=== PATIENT | female | born 1965 | race Caucasian/White ===

== ENCOUNTER 2024-05-01 09:29 | Emergency (ER) | payer OTHER ==
--- NOTE | 2024-05-01 09:44 | ERPHSYRPT ---
- History of Present Illness Time Seen by Provider: 05/01/24 09:38 Source: patient Exam Limitations: no limitations Physician History: Pt accidentally took 60 units of humalog insulin but normal dose is 20 and noted glucose decreasing on her monitor to 120 which is generally lower than it usually gets in normal routine and called and was advised to come in. THis was as about 8 am and the hotline told her the peak should be at around 2 hours in and she is about there now. She has no symptoms at this time. She took some orange soda and it has begun to rise to upper 130s now. No heart problems. Discussed with pt and available family risks and benefits of testing/Tx and she wishes to be observed an hour or two and eat in ER and agrees that since she had no illness or symptoms preceding to avoid additional testing at this time and that is very reasonable given Hx and lack of other findings. Normal mental status and exam at this time. normal gait and coordination. Fundi benign. Chest clear Ht reg without M. Abd soft nontender without mass or peritoneal signs. No SI/HI or mental health symptoms. Timing/Duration: today Severity: mild Modifying Factors: Improves With: nothing Associated Symptoms: denies symptoms, No nausea, No vomiting, No abdominal pain, No shortness of breath, No cough, No chest pain, No fever, No headaches, No loss of appetite, No malaise, No syncope, No seizure, No weakness Allergies/Adverse Reactions: No Known Drug Allergies Allergy (Unverified 05/01/24 09:47) Home Medications: Insulin Glargine,Hum.rec.anlog [Lantus] 60 unit SQ DAILY 05/01/24 [History] Insulin Lispro [Humalog Kwikpen U-100] 12 unit SQ TIDWM 05/01/24 [History] Lisinopril 10 mg [Zestril 10 MG] 10 mg PO DAILY 05/01/24 [History] - Review of Systems Constitutional: No Fever, No Chills Eyes: No Symptoms Ears, Nose, & Throat: No Symptoms Respiratory: No Cough, No Dyspnea Cardiac: No Chest Pain, No Edema, No Syncope Abdominal/Gastrointestinal: No Abdominal Pain, No Nausea, No Vomiting, No Diarrhea Genitourinary Symptoms: No Dysuria Musculoskeletal: No Back Pain, No Neck Pain Skin: No Rash Neurological: No Dizziness, No Focal Weakness, No Gait Changes, No Headache, No Sensory Changes Psychological: No Symptoms, No Suicidal Ideations, No Homicidal Ideations, No Hallucinations Endocrine: No Symptoms Hematologic/Lymphatic: No Symptoms Immunological/Allergic: No Symptoms All Other Systems: Reviewed and Negative - Past Medical History Pertinent Past Medical History: Yes Cardiac History: Hypertension Endocrine Medical History: Diabetes Type II - Nursing Vital Signs Nursing Vital Signs: Initial Vital Signs Temperature 97.0 F 05/01/24 09:33 Pulse Rate 97 H 05/01/24 09:33 Respiratory Rate 18 05/01/24 09:33 Blood Pressure 168/82 05/01/24 09:33 O2 Sat by Pulse Oximetry 98 05/01/24 09:33 Pain Scale Pain Intensity 0 - Physical Exam General Appearance: no apparent distress, alert Eye Exam: PERRL/EOMI, eyes nml inspection Ears, Nose, Throat Exam: normal ENT inspection, TMs normal, pharynx normal, moist mucous membranes Neck Exam: normal inspection, non-tender, supple, full range of motion Respiratory Exam: normal breath sounds, lungs clear, No respiratory distress Cardiovascular Exam: regular rate/rhythm, normal heart sounds, normal peripheral pulses Gastrointestinal/Abdomen Exam: soft, normal bowel sounds, No tenderness, No mass Pelvic Exam: deferred Rectal Exam: deferred Back Exam: normal inspection, normal range of motion, No CVA tenderness, No vertebral tenderness Extremity Exam: normal inspection, normal range of motion, pelvis stable Neurologic Exam: alert, oriented x 3, cooperative, [employer]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, normal mood/affect, nml cerebellar function, nml station & gait, sensation nml, No motor deficits, No sensory deficit, No disoriented, No confusion, No agitation, No uncooperative, No intoxicated appearance, No depressed mood/affect, No motor weakness, No facial droop, No slurred speech, No abnormal gait, No EOM palsy Skin Exam: normal color, warm, dry, No rash Lymphatic Exam: No adenopathy SpO2 Interpretation: normal SpO2: 99 O2 Delivery: Room Air - Course Nursing assessment & vital signs reviewed: Yes Ordered Tests: Active Orders 24 hr Category Date Time Status POCT Glucose Check STAT Care 05/01/24 10:41 Active POCT GLUCOSE Stat Lab 05/01/24 09:39 Completed POCT GLUCOSE Stat Lab 05/01/24 10:39 Completed Lab/Rad Data: Laboratory Results 05/01/24 05/01/24 Range/Units 10:39 09:39 POC Glucometer 133 H 138 H (74 to 106) mg/dL - Progress Progress: improved, re-examined Progress Note: 05/01/24 09:49 Pt glucose is stable 120s - 130s after peak predicted insulin effect per poison control - discussed risks/benefits of further observation in house vs continued self monitoring with her device and taking along and emergency glucose tube and she prefers outpt f/u to PMD and insulin dose adjustment and has the capacity to make this choice. 05/01/24 10:57 Counseled pt/family regarding: lab results, diagnosis, need for follow-up Medical Desision Making - Independent Historian Additional History obtained from: Spouse - Discussion of managment Reviewed:: Test results, Need for additional workup - Diagnostic Testing Diagnostic test were ordered, analyzed, and reviewed by me: Yes Radiological Interpretation: Interpreted by me, Reviewed by me - Risk of complications The pt has a mod risk of morbidity or mortality based on: Need for prescription drug management The pt has a high risk of morbidity or mortality based on: Decision regarding hospitilization or escalation of hosp level of care - Departure Departure Disposition: Home Clinical Impression: Mild hypoglycemia from incorrect insulin Condition: Good Critical Care Time: No Referrals: WILFRID ZHENG NP, RN [Primary Care Provider] - Follow up/PCP as directed Instructions: Low Blood Sugar, Adult (DC), Low blood sugar in people with diabetes, Accidental Overdose, Adult ED Additional Instructions: followup with your Dr. for elevated blood pressure optimal control and consult your Dr. for any indicated insulin adjustment. Although the glucose level responded , continue monitoring and eat more if it lowers again, and use glucose if you develop symptoms and return or call 911 if this occurs or if you develop any other symptoms of concern.
[2024-05-01 09:47] VITALS: RESP 18; TEMP 97
[2024-05-01 11:03] VITALS: BP 165/100; PULSE 78; O2SAT 98
[2024-05-01] MEDS: Glutose 15 GM ORAL GEL PO ONE (11:04)
== END 2024-05-01 11:14 | disposition home or self-care (01) ==
LOC: ED 09:29
DX: T38.3X1A Poisoning by insulin and oral hypoglycemic [antidiabetic] drugs, accidental (unintentional), initial encounter (principal); E11.649 Type 2 diabetes mellitus with hypoglycemia without coma; I10 Essential (primary) hypertension; Z79.4 Long term (current) use of insulin; Z79.899 Other long term (current) drug therapy
CPT/HCPCS: 82947; 99282; 99283; A9270-GY